=== PATIENT | female | born 1995 | race Caucasian/White ===

== ENCOUNTER 2016-10-12 18:18 | Emergency (ER) | payer OTHER ==
[2016-10-12 18:25] VITALS: BMI 30.1
--- NOTE | 2016-10-12 19:25 | PDOC ---
History of Present Illness - History of Present Illness Initial Comments: 10/12/16 19:43 The patient is a 21 year old female, liberian speaking, with no significant past medical history, who presents to the emergency department with lower abdominal pain and nausea for one week. She reports the pain is intermittent and exacerbated after eating. She reports some associated shortness of breath while experiencing the abdominal pain. She denies dyspnea otherwise. She also reports chills. She denies constipation. She reports her last normal bowel movement was today. She reports her last menstrual period was in September. She reports taking motrin for pain with little to no alleviation of pain. She denies chest pain, shortness of breath, headache and dizziness. She denies fever, chills, nausea, vomit, diarrhea and constipation. She denies dysuria, frequency, urgency and hematuria. Allergies: NKDA Social history: denies toxic habits <Shagufta Bravo - Last Filed: 10/12/16 23:55> <Ruth Ann Cason - Last Filed: 10/20/16 05:02> - General Chief Complaint: Pain Stated Complaint: ABD PAIN Time Seen by Provider: 10/12/16 19:16 Past History <Shagufta Bravo - Last Filed: 10/12/16 23:55> - Past Medical History Other medical history: none - Psycho/Social/Smoking Cessation Hx Anxiety: No Suicidal Ideation: No Smoking History: Never smoked Have you smoked in the past 12 months: No Information on smoking cessation initiated: No Hx Alcohol Use: No Drug/Substance Use Hx: No Substance Use Type: None <Ruth Ann Cason - Last Filed: 10/20/16 05:02> - Past Medical History Allergies/Adverse Reactions: Allergies Allergy/AdvReac Type Severity Reaction Status Date / Time No Known Allergies Allergy Verified 10/12/16 18:21 Home Medications: Ambulatory Orders NK [No Known Home Medication] 10/12/16 Review of Systems - Review of Systems Able to Perform ROS?: Yes Comments:: 10/12/16 19:45 GENERAL/CONSTITUTIONAL: No fever or chills. No weakness. HEAD, EYES, EARS, NOSE AND THROAT: No change in vision. No ear pain or discharge. No sore throat. CARDIOVASCULAR: No chest pain or shortness of breath. RESPIRATORY: No cough, wheezing, or hemoptysis. GASTROINTESTINAL: (+) Abdominal pain, nausea, and vomiting. No diarrhea or constipation. GENITOURINARY: No dysuria, frequency, or change in urination. MUSCULOSKELETAL: No joint or muscle swelling or pain. No neck or back pain. SKIN: No rash NEUROLOGIC: No headache, vertigo, loss of consciousness, or change in strength/ sensation. ENDOCRINE: No increased thirst. No abnormal weight change. HEMATOLOGIC/LYMPHATIC: No anemia, easy bleeding, or history of blood clots. ALLERGIC/IMMUNOLOGIC: No hives or skin allergy. <Shagufta Bravo - Last Filed: 10/12/16 23:55> *Physical Exam - Vital Signs Last Vital Signs Temp Pulse Resp BP Pulse Ox 98.3 F 63 18 111/54 100 10/12/16 18:23 10/12/16 18:23 10/12/16 18:23 10/12/16 18:23 10/12/16 18:23 - Physical Exam Comments: 10/12/16 19:47 GENERAL: Awake, alert, and fully oriented, in no acute distress HEAD: No signs of trauma EYES: PERRLA, EOMI, sclera anicteric, conjunctiva clear ENT: Auricles normal inspection, hearing grossly normal, nares patent, oropharynx clear without exudates. Moist mucosa NECK: Normal ROM, supple, no lymphadenopathy, JVD, or masses LUNGS: Breath sounds equal, clear to auscultation bilaterally. No wheezes, and no crackles HEART: Regular rate and rhythm, normal S1 and S2, no murmurs, rubs or gallops ABDOMEN: (+) Pt reports minimal tenderness to palpation to lower abdomen. No significant tenderness appreciated on exam. Soft, normoactive bowel sounds. No guarding, no rebound. No masses. EXTREMITIES: Normal range of motion, no edema. No clubbing or cyanosis. No cords, erythema, or tenderness NEUROLOGICAL: Cranial nerves II through XII grossly intact. Normal speech, normal gait SKIN: Warm, Dry, normal turgor, no rashes or lesions noted. <Shagufta Bravo - Last Filed: 10/12/16 23:55> - Vital Signs Last Vital Signs Temp Pulse Resp BP Pulse Ox 98.3 F 63 18 111/54 100 10/12/16 18:23 10/12/16 18:23 10/12/16 18:23 10/12/16 18:23 10/12/16 18:23 <Ruth Ann Cason - Last Filed: 10/20/16 05:02> ED Treatment Course - LABORATORY CBC & Chemistry Diagram: 10/12/16 20:00 10/12/16 20:00 - ADDITIONAL ORDERS Additional order review: Laboratory Results 10/12/16 19:15 Urine Color Ltyellow Urine Appearance Slcloudy Urine pH 7.0 Ur Specific [place] 1.021 Urine Protein Negative Urine Glucose (UA) Negative Urine Ketones Negative Urine Blood 2+ H Urine Nitrite Negative Urine Bilirubin Negative Urine Urobilinogen Negative Ur Leukocyte Esterase 1+ H Urine RBC 1 Urine WBC 3 Ur Epithelial Cells Rare Urine Mucus Rare Urine HCG, Qual Negative - RADIOLOGY Radiograph Interpretation: 10/12/16 23:55 EXAM: CT ABDOMEN AND PELVIS WITHOUT CONTRAST was read by Ericka Henry M.D. at 23:35 EST Impression: No nephrolithiasis, ureterolithiasis or obstructive uropathy. No bladder calculi. Unremarkable pancreas and gallbladder. No bowel obstruction, colitis, free fluid or free air. Normal appendix. <Shagufta Bravo - Last Filed: 10/12/16 23:55> - LABORATORY CBC & Chemistry Diagram: 10/12/16 20:00 10/12/16 20:00 <Ruth Ann Cason - Last Filed: 10/20/16 05:02> Medical Decision Making - Medical Decision Making 10/12/16 23:35 Patient Name: Jadyn Gutierrez THIS IS A PRELIMINARY REPORT FROM [facility] IMAGES: [id number] EXAM DATE AND TIME: 2016-10-12 22:33:32.0 EXAM: CT ABDOMEN AND PELVIS WITHOUT CONTRAST No nephrolithiasis, ureterolithiasis or obstructive uropathy. No bladder calculi. Unremarkable pancreas and gallbladder. No bowel obstruction, colitis, free fluid or free air. Normal appendix. THIS DOCUMENT HAS BEEN ELECTRONICALLY SIGNED 10/20/16 05:00 Pt comes with diffuse abdominal pain. She has pain after meals and she also complains of low abd pain. She has no flank pain and no dysuria. Exam is not impressive. Diffuse mild pain. Labs normal. Sono abd pelvis normal. She has no fevers or chills. UA doesn't reveal UTI. Pt was hydrated in the ER and she is feeling better here. Follow with PMD <Ruth Ann Cason - Last Filed: 10/20/16 05:02> *DC/Admit/Observation/Transfer - Attestations Scribe Attestion: 10/12/16 19:47 Documentation prepared by Shagufta Bravo, acting as senior medical billing specialist for Ruth Ann Cason MD <Shagufta Bravo - Last Filed: 10/12/16 23:55> - Discharge Dispostion Admit: No <Ruth Ann Cason - Last Filed: 10/20/16 05:02> Diagnosis at time of Disposition: Abdominal pain - Discharge Dispostion Disposition: HOME Condition at time of disposition: Stable - Patient Instructions Printed Discharge Instructions: DI for Abdominal Pain-Adult
[2016-10-12 19:28] LABS: URINE APPEARANCE SLCLOUDY; URINE BILIRUBIN NEGATIVE (NEGATIVE); URINE COLOR LTYELLOW; URINE GLUCOSE (UA) NEGATIVE (NEGATIVE); URINE KETONE NEGATIVE (NEGATIVE); URINE NITRITE NEGATIVE (NEGATIVE); URINE PROTEIN NEGATIVE (NEGATIVE); URINE UROBILINOGEN NEGATIVE E.U./dl (0.2-1.0)
[2016-10-12 19:31] LABS: URINE BLOOD 2+ (NEGATIVE); URINE LEUK ESTERASE 1+ (NEGATIVE)
[2016-10-12 19:32] LABS: URINE MUCUS RARE; URINE RBC 1 /hpf (0-3); URINE WBC 3 /hpf (3-5)
[2016-10-12] MEDS ORDERED: SODIUM CHLORIDE 0.9% 500 ML INFUS.BAG IV ONE (19:46)
[2016-10-12 20:11] LABS: BASOPHIL 0.3 % (0-2.0); EOSINOPHIL 1.3 % (0-4.5); MCHC 33.1 g/dl (32.0-36.0); MEAN CELL VOLUME 81.5 fl (80-96); MEAN PLT VOLUME 8.2 fl (7.5-11.1); NEUTROPHILS 69.7 % (42.8-82.8); PLATELET COUNT 213 K/MM3 (134-434); RDW 13.1 % (11.6-15.6); WHITE BLOOD COUNT 9.5 K/mm3 (4.0-10.0)
[2016-10-12 20:44] LABS: ALK PHOS 107 U/L (45-117); AMYLASE 45 U/L (25-115); ANION GAP 7 (8-16); BILIRUBIN,TOTAL 0.2 mg/dL (0.2-1.0); CALCIUM 8.5 mg/dL (8.5-10.1); CO2 27 mmol/L (21-32); CREATININE 0.6 mg/dL (0.55-1.02); GLUCOSE,RANDOM 90 mg/dL (74-106); SGOT/AST 24 U/L (15-37); SGPT/ALT 54 U/L (12-78); TOT PROT 7.4 g/dl (6.4-8.2)
[2016-10-13 00:39] VITALS: BP 115/60; PULSE 66; TEMP 98.4
== END 2016-10-12 23:30 | disposition home or self-care (01) ==
LOC: JER 18:18
DX: R10.30 Lower abdominal pain, unspecified (principal)
CPT/HCPCS: 36415; 74176-TC; 80053; 81003; 81015; 82150; 83690; 84703; 85025; 99283-25

== ENCOUNTER 2018-11-24 15:56 | Emergency (ER) | payer OTHER ==
--- NOTE | 2018-11-24 16:05 | PDOC ---
Rapid Medical Evaluation Chief Complaint: Pain Time Seen by Provider: 11/24/18 16:01 Medical Evaluation: Allergies Allergy/AdvReac Type Severity Reaction Status Date / Time No Known Allergies Allergy Verified 10/12/16 18:21 11/24/18 16:02 HPI: Abdominal pain x1 week with back pain and dysuria and lower back pain PE: No distress ORDERS: Belly labs and Urine Discharge Disposition - Diagnosis Abdominal pain - Referrals - Patient Instructions - Post Discharge Activity
[2018-11-24 16:06] VITALS: BP 93/50; PULSE 62; TEMP 98.3; BMI 35.4
[2018-11-24 16:54] LABS: BASO % 0.4 % (0-2.0); EOS % 7.1 % (0-4.5); HEMATOCRIT 38.3 % (32.4-45.2); HEMOGLOBIN 12.4 GM/dL (10.7-15.3); MCH 27.2 pg (25.7-33.7); MCHC 32.5 g/dl (32.0-36.0); MEAN CELL VOLUME 83.9 fl (80-96); MONO % 5.2 % (3.8-10.2); NEUT % 61.3 % (42.8-82.8); PLATELET COUNT 208 K/MM3 (134-434); RBC 4.57 M/mm3 (3.60-5.2); RDW 13.1 % (11.6-15.6); WHITE BLOOD COUNT 8.1 K/mm3 (4.0-10.0)
--- NOTE | 2018-11-24 17:31 | PDOC ---
*Physical Exam - Vital Signs Last Vital Signs Temp Pulse Resp BP Pulse Ox 98.3 F 62 16 93/50 L 99 11/24/18 16:00 11/24/18 16:00 11/24/18 16:00 11/24/18 16:00 11/24/18 16:00 ED Treatment Course - LABORATORY CBC & Chemistry Diagram: 11/24/18 16:37 11/24/18 17:59 - ADDITIONAL ORDERS Additional order review: Laboratory Results 11/24/18 11/24/18 16:41 16:37 Sodium Cancelled Potassium Cancelled Chloride Cancelled Carbon Dioxide Cancelled Anion Gap Cancelled BUN Cancelled Creatinine Cancelled Est GFR (CKD-EPI)AfAm Cancelled Est GFR (CKD-EPI)NonAf Cancelled Random Glucose Cancelled Calcium Cancelled Total Bilirubin Cancelled AST Cancelled ALT Cancelled Alkaline Phosphatase Cancelled Total Protein Cancelled Albumin Cancelled Lipase Cancelled Urine HCG, Qual Negative 11/24/18 16:37 RBC 4.57 MCV 83.9 MCHC 32.5 RDW 13.1 MPV 9.0 Neutrophils % 61.3 Lymphocytes % 26.0 Monocytes % 5.2 Eosinophils % 7.1 H D Basophils % 0.4 Medical Decision Making - Medical Decision Making 11/24/18 17:30 Pt seen by Midlevel Provider under my direct supervision Ancillary studies reviewed CT pending I agree with plan as outlined by Midlevel Provider *DC/Admit/Observation/Transfer Diagnosis at time of Disposition: UTI (urinary tract infection) - Discharge Dispostion Disposition: HOME Condition at time of disposition: Fair - Prescriptions Prescriptions: Cephalexin Monohydrate [Keflex -] 500 mg PO BID #20 capsule - Referrals Referrals: Mike Burgos MD [Staff Physician] - - Patient Instructions Additional Instructions: Rest, drink lots of fluids: Teas, water, soups Avoid contact with others until fevers and symptoms resolved Lots of handwashing and good hygiene Continue [id number] medications for symptomatic relief Tylenol or Motrin for fever and pain Continue all of antibiotics until completed Followup with private physician in one week for repeat urinalysis/reevaluation Return to emergency department for worsened symptoms, fevers, dehydration Descanse, sam muchos lquidos: Ts, agua, sopas Evite el contacto con otros hasta que las fiebres y los sntomas se resuelvan Un montn de lavado de mani y buena higiene Contine los medicamentos sin receta para el alivio sintomtico Tylenol o Motrin para la fiebre y el dolor Continuar todos los antibiticos hasta completarse Seguimiento con mdico privado en stephanie semana para repetir anlisis de orina / reevaluacin Volver al servicio de urgencias por sntomas empeorados, fiebres, deshidratacin - Post Discharge Activity
--- NOTE | 2018-11-24 17:38 | PDOC ---
History of Present Illness - General Chief Complaint: Pain Stated Complaint: ABD PAIN Time Seen by Provider: 11/24/18 16:01 History Source: Patient - History of Present Illness Timing/Duration: reports: constant Past History - Past Medical History Allergies/Adverse Reactions: Allergies Allergy/AdvReac Type Severity Reaction Status Date / Time No Known Allergies Allergy Verified 10/12/16 18:21 Home Medications: Ambulatory Orders NK [No Known Home Medication] 10/12/16 COPD: No Thyroid Disease: No - Suicide/Smoking/Psychosocial Hx Smoking History: Never smoked Have you smoked in the past 12 months: No Information on smoking cessation initiated: No Hx Alcohol Use: No Drug/Substance Use Hx: No Substance Use Type: None Review of Systems - Review of Systems Constitutional: No: Chills, Fever ABD/GI: Yes: Abdominal cramping. No: Constipated, Diarrhea, Nausea, Rectal Bleeding, Vomiting : Yes: Dysuria. No: Flank Pain, Hematuria Musculoskeletal: Yes: Back Pain *Physical Exam - Vital Signs Last Vital Signs Temp Pulse Resp BP Pulse Ox 98.3 F 62 16 93/50 L 99 11/24/18 16:00 11/24/18 16:00 11/24/18 16:00 11/24/18 16:00 11/24/18 16:00 - Physical Exam General Appearance: Yes: Appropriately Dressed. No: Apparent Distress HEENT: positive: Normal Voice Neck: positive: Supple Respiratory/Chest: negative: Respiratory Distress Female Pelvic Exam: positive: normal external exam, cervical os closed, normal adnexa. negative: CMT, discharge, adnexal tenderness, vaginal bleeding Gastrointestinal/Abdominal: positive: Tender (poorly localized ttp to lower abd) , Soft Musculoskeletal: negative: CVA Tenderness Integumentary: positive: Dry, Warm Neurologic: positive: Fully Oriented, Alert, Normal Mood/Affect ED Treatment Course - LABORATORY CBC & Chemistry Diagram: 11/24/18 16:37 11/24/18 16:37 - ADDITIONAL ORDERS Additional order review: Laboratory Results 11/24/18 11/24/18 16:41 16:37 Sodium Cancelled Potassium Cancelled Chloride Cancelled Carbon Dioxide Cancelled Anion Gap Cancelled BUN Cancelled Creatinine Cancelled Est GFR (CKD-EPI)AfAm Cancelled Est GFR (CKD-EPI)NonAf Cancelled Random Glucose Cancelled Calcium Cancelled Total Bilirubin Cancelled AST Cancelled ALT Cancelled Alkaline Phosphatase Cancelled Total Protein Cancelled Albumin Cancelled Lipase Cancelled Urine HCG, Qual Negative 11/24/18 16:37 RBC 4.57 MCV 83.9 MCHC 32.5 RDW 13.1 MPV 9.0 Neutrophils % 61.3 Lymphocytes % 26.0 Monocytes % 5.2 Eosinophils % 7.1 H D Basophils % 0.4 Medical Decision Making - Medical Decision Making 11/24/18 17:35 23-year-old female, denies any past medical history, here with abdominal pain. Patient states for the past week has had mostly constant anne-umbilical pain radiating to her back with dysuria. No hematuria, urinary frequency, nausea, vomiting, fever, chills, vaginal discharge or change in bowel movements. No history of similar symptoms See exam R/o uti/pyelo vs appy vs , less likely torsion or PID Exam remarkable for hypotension w/ poorly localized ttp to lower abd, pelvic wnl , no CVAT -pain control -labs -CT 11/24/18 18:11 *DC/Admit/Observation/Transfer Diagnosis at time of Disposition: Abdominal pain - Referrals - Patient Instructions - Post Discharge Activity
[2018-11-24] MEDS ORDERED: KETOROLAC TROMETHAMINE 30 MG/1 ML VIAL IVPUSH ONE (17:39)
[2018-11-24] MEDS ORDERED: SODIUM CHLORIDE 1,000 ML IV STA (17:40)
[2018-11-24] MEDS ORDERED: KETOROLAC TROMETHAMINE 30 MG/1 ML VIAL ONE (17:52)
[2018-11-24 18:53] LABS: ALBUMIN 4.1 g/dl (3.4-5.0); BILIRUBIN,TOTAL 0.3 mg/dL (0.2-1); CALCIUM 9.1 mg/dL (8.5-10.1); CREATININE 0.7 mg/dL (0.55-1.3); TOT PROT 7.5 g/dl (6.4-8.2)
--- NOTE | 2018-11-24 19:14 | PDOC ---
*Physical Exam - Vital Signs Last Vital Signs Temp Pulse Resp BP Pulse Ox 98.3 F 62 16 93/50 L 99 11/24/18 16:00 11/24/18 16:00 11/24/18 16:00 11/24/18 16:00 11/24/18 16:00 - Physical Exam Respiratory/Chest: positive: Lungs Clear, Normal Breath Sounds. negative: Respiratory Distress, Accessory Muscle Use Cardiovascular: positive: Regular Rhythm, Regular Rate. negative: Murmur Gastrointestinal/Abdominal: positive: Normal Bowel Sounds, Soft, Tenderness ( suprapubic area) ED Treatment Course - LABORATORY CBC & Chemistry Diagram: 11/24/18 16:37 11/24/18 17:59 - ADDITIONAL ORDERS Additional order review: Laboratory Results 11/24/18 11/24/18 11/24/18 17:59 16:41 16:37 Sodium 139 Cancelled Potassium 4.0 Cancelled Chloride 107 Cancelled Carbon Dioxide 25 Cancelled Anion Gap 7 L Cancelled BUN 18 Cancelled Creatinine 0.7 Cancelled Est GFR (CKD-EPI)AfAm 141.54 Cancelled Est GFR (CKD-EPI)NonAf 122.12 Cancelled Random Glucose 73 L Cancelled Calcium 9.1 Cancelled Total Bilirubin 0.3 Cancelled AST 15 Cancelled ALT 30 Cancelled Alkaline Phosphatase 89 Cancelled Total Protein 7.5 Cancelled Albumin 4.1 Cancelled Lipase Cancelled Urine HCG, Qual Negative 11/24/18 16:37 RBC 4.57 MCV 83.9 MCHC 32.5 RDW 13.1 MPV 9.0 Neutrophils % 61.3 Lymphocytes % 26.0 Monocytes % 5.2 Eosinophils % 7.1 H D Basophils % 0.4 - Medications Given in the ED: ED Medications Discontinued Medications Generic Name Dose Route Start Last Admin Trade Name Freq PRN Reason Stop Dose Admin Sodium Chloride 1,000 mls @ 1,000 mls/hr 11/24/18 17:40 11/24/18 17:45 Normal Saline - IV 11/24/18 18:39 1,000 mls/hr ASDIR STA Administration Ketorolac Tromethamine 30 mg 11/24/18 17:39 11/24/18 17:45 Toradol Injection - IVPUSH 11/24/18 17:40 30 mg ONCE ONE Administration Progress Note - Progress Note Progress Note: Received signout from FARNAZ Lewis. Briefly this is a 23-year-old female without comorbidities presents with lower abdominal pain. Patient reports the pain has been very umbilical and constant in nature radiating to her back and is associated with dysuria. Per signout INSOLE COVERER exam was benign. Patient is pending CT exam and urinalysis. Medical Decision Making - Medical Decision Making 11/24/18 20:51 CT as read by Dr. Dinh: No definite CT findings of acute abnormality are noted. Trace amount of free fluid is seen within the pelvic cul-de-sac which may be physiologic in nature. 1.5 cm involuting right ovarian cyst is noted. 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 Urology consultation and suggested if not previously performed. CBC with mildly elevated eosinophils. CMP is unremarkable. Urinalysis notable for 2+ leuk esterase with 10 wbc's on high-power field. I'll treat the patient for urinary tract infection give patient referral for urology consultation regarding the urachal diverticulum. 11/24/18 21:06 I discussed the physical exam findings, ancillary test results and final diagnoses with the patient. I answered all of the patient's questions. The patient was satisfied with the care received and felt comfortable with the discharge plan and treatment plan. The patient will call their primary care physician within 24 hours to arrange follow-up and will return to the Emergency Department with any new, persistent or worsening symptoms. *DC/Admit/Observation/Transfer Diagnosis at time of Disposition: UTI (urinary tract infection) Qualifiers: Urinary tract infection type: acute cystitis Hematuria presence: without hematuria Qualified Code(s): N30.00 - Acute cystitis without hematuria - Discharge Dispostion Disposition: HOME Condition at time of disposition: Fair Decision to Admit order: No - Prescriptions Prescriptions: Cephalexin Monohydrate [Keflex -] 500 mg PO BID #20 capsule - Referrals Referrals: Mike Burgos MD [Staff Physician] - - Patient Instructions Additional Instructions: Rest, drink lots of fluids: Teas, water, soups Avoid contact with others until fevers and symptoms resolved Lots of handwashing and good hygiene Continue [id number] medications for symptomatic relief Tylenol or Motrin for fever and pain Continue all of antibiotics until completed Followup with private physician in one week for repeat urinalysis/reevaluation Return to emergency department for worsened symptoms, fevers, dehydration Descanse, sam muchos lquidos: Ts, agua, sopas Evite el contacto con otros hasta que las fiebres y los sntomas se resuelvan Un montn de lavado de mani y buena higiene Contine los medicamentos sin receta para el alivio sintomtico Tylenol o Motrin para la fiebre y el dolor Continuar todos los antibiticos hasta completarse Seguimiento con mdico privado en stephanie semana para repetir anlisis de orina / reevaluacin Volver al servicio de urgencias por sntomas empeorados, fiebres, deshidratacin - Post Discharge Activity
[2018-11-24 19:51] LABS: PH,URINE 5.5 (5.0-8.0); URINE APPEARANCE CLEAR; URINE BILIRUBIN NEGATIVE (NEGATIVE); URINE CASTS 3 /lpf (0-8); URINE COLOR YELLOW; URINE GLUCOSE (UA) NEGATIVE (NEGATIVE); URINE KETONE NEGATIVE (NEGATIVE); URINE LEUK ESTERASE 2+ (NEGATIVE); URINE NITRITE NEGATIVE (NEGATIVE); URINE PROTEIN NEGATIVE (NEGATIVE); URINE UROBILINOGEN 0.2 mg/dL (0.2-1.0); URINE WBC 10 /hpf (0-5)
[2018-11-24 19:52] LABS: URINE RBC 3.9 /hpf (0-4)
== END 2018-11-24 21:26 | disposition home or self-care (01) ==
LOC: JER 15:56
PROC: 3E0333Z Introduction of Anti-inflammatory into Peripheral Vein, Percutaneous Approach (ICD-10-PCS; principal; 2018-11-24)
PROC: 3E0337Z Introduction of Electrolytic and Water Balance Substance into Peripheral Vein, Percutaneous Approach (ICD-10-PCS; 2018-11-24)
DX: R10.9 Unspecified abdominal pain (principal); N39.0 Urinary tract infection, site not specified
CPT/HCPCS: 36415; 74177-TC; 80053; 81003; 83690; 84703; 85025; 87086; 87491; 87591; 99283-25; J7030

== ENCOUNTER 2019-01-11 15:59 | Emergency (ER) | payer OTHER ==
[2019-01-11 16:24] VITALS: BP 109/64; PULSE 72; TEMP 98.4; BMI 30.9
--- NOTE | 2019-01-11 16:26 | PDOC ---
Rapid Medical Evaluation Chief Complaint: Wound Time Seen by Provider: 01/11/19 16:22 Medical Evaluation: Allergies Allergy/AdvReac Type Severity Reaction Status Date / Time No Known Allergies Allergy Verified 10/12/16 18:21 01/11/19 16:22 Pt presents with a rash to the L medial ankle for the past 4 days. She states that the rash is getting worse and it is painful. Denies itching. Admits to chills. Took Motrin at 2pm for the pain Exam: cellulitic appearing area to the medial L ankle with associated pustules. ambulatory Orders: labs, urine Pt to proceed to the ER for further eval Discharge Disposition - Diagnosis Cellulitis - Discharge Dispostion Condition at time of disposition: Stable - Referrals - Patient Instructions - Post Discharge Activity
--- NOTE | 2019-01-11 17:17 | PDOC ---
History of Present Illness <Elizabeth Gillis - Last Filed: 01/11/19 17:20> - General History Source: Patient - History of Present Illness Occurred: reports: other Lower Extremity Pain Location: left: leg <Michael Multani - Last Filed: 01/11/19 18:54> - General Chief Complaint: Wound Stated Complaint: LT.LEG CELLULITS Time Seen by Provider: 01/11/19 16:22 Past History <Elizabeth Gillis - Last Filed: 01/11/19 17:20> - Past Medical History COPD: No Thyroid Disease: No - Suicide/Smoking/Psychosocial Hx Smoking History: Never smoked Have you smoked in the past 12 months: No Information on smoking cessation initiated: No Hx Alcohol Use: No Drug/Substance Use Hx: No Substance Use Type: None <Michael Multani - Last Filed: 01/11/19 18:54> - Past Medical History Allergies/Adverse Reactions: Allergies Allergy/AdvReac Type Severity Reaction Status Date / Time No Known Allergies Allergy Verified 10/12/16 18:21 Home Medications: Ambulatory Orders Cephalexin Monohydrate [Keflex -] 500 mg PO QID #28 capsule 01/11/19 Mupirocin Ointment [Bactroban 2% Ointment -] 1 applic TP TID #1 applic 01/11/19 Sulfamethoxazole/Trimethoprim [Bactrim Ds Tablet] 1 each PO BID #14 tablet 01/11 Review of Systems - Review of Systems Constitutional: No: Chills, Fever, Malaise <Michael Mlutani - Last Filed: 01/11/19 18:54> *Physical Exam - Vital Signs Last Vital Signs Temp Pulse Resp BP Pulse Ox 98.4 F 72 18 109/64 100 01/11/19 16:22 01/11/19 16:22 01/11/19 16:22 01/11/19 16:22 01/11/19 16:22 <Elizabeth Gillis - Last Filed: 01/11/19 17:20> - Vital Signs Last Vital Signs Temp Pulse Resp BP Pulse Ox 98.4 F 72 18 109/64 100 01/11/19 16:22 01/11/19 16:22 01/11/19 16:22 01/11/19 16:22 01/11/19 16:22 - Physical Exam General Appearance: Yes: Appropriately Dressed. No: Apparent Distress HEENT: positive: Normal Voice Neck: positive: Supple Respiratory/Chest: negative: Respiratory Distress Integumentary: positive: Dry, Warm, Other (multiple pustular lesions to medial L lower leg surrounding by ~6x4cm area of intense non-blanching erythema w/ fainter erythema extending circumferentially, no induration) Neurologic: positive: Fully Oriented, Alert, Normal Mood/Affect <Michael Multani - Last Filed: 01/11/19 18:54> Medical Decision Making - Medical Decision Making 01/11/19 17:20 The patient was seen and evaluated in conjunction with midlevel provider under my direct supervision, ancillary studies were reviewed. I agree with the plan as outlined FARNAZ Multani. HPI, workup/dispo as outlined. 23 YOF with LLE redness/ pain x 6 days, after scratching the area. VS reviewed, wnl. anticipate discharge , pcp followup, return precautions no systemic findings LLE medial aspect with area of erythema and warmth, pustules with dry yellow crusting. appearing like impetigo of skin, after minor trauma/scratching. no crepitus. soft tissue sono with no fluid collection, no A lines/gas seen. no e/o cellulitis or abscess. doubt nec fasciitis with clinical picture, timeline and sx. rx abx keflex/bactrim, topical mupirocin f/u 2 days for wound reeval. <Elizabeth Gillis - Last Filed: 01/11/19 17:20> - Medical Decision Making 01/11/19 17:54 23 yo F, no sig hx, here for evaluation of LLE wound. Pt states 6 days ago she noticed itching to medial aspect of L lower leg and has been scratching area. Has since noticed redness and pain. No f/c. No obvious bite or trauma. No f/c or malaise See exam Possible secondary impetigo to LLE -wound cx sent -dc w/ bactrim, keflex and bactroban -pen gracie drawn around site -wound check in 2 days, pt to return sooner as discussed 01/11/19 18:53 <[place],Lyndsay-Rosa - Last Filed: 01/11/19 18:54> *DC/Admit/Observation/Transfer <Elizabeth Gillis - Last Filed: 01/11/19 17:20> <Lyndsay Multani-Rosa - Last Filed: 01/11/19 18:54> Diagnosis at time of Disposition: Impetigo - Discharge Dispostion Disposition: HOME Condition at time of disposition: Stable - Prescriptions Prescriptions: Cephalexin Monohydrate [Keflex -] 500 mg PO QID #28 capsule Mupirocin Ointment [Bactroban 2% Ointment -] 1 applic TP TID #1 applic Sulfamethoxazole/Trimethoprim [Bactrim Ds Tablet] 1 each PO BID #14 tablet - Patient Instructions Printed Discharge Instructions: DI for Impetigo Additional Instructions: Parece que tiene stephanie infeccin en la pierna y se inici con antibiticos orales y tpicos Es importante que tome los medicamentos segn las indicaciones. Regrese a la ED en 2 valle para la revisin de la herida Vuelva inmediatamente si los sntomas empeoran alexander se discuti hoy. Print Language: ROMANIAN
== END 2019-01-11 18:30 | disposition home or self-care (01) ==
LOC: JER 15:59
DX: L01.00 Impetigo, unspecified (principal)
CPT/HCPCS: 87070; 87186; 87205; 99282-25